=== PATIENT | male | born 1985 | race Caucasian/White ===

== ENCOUNTER 2025-11-17 15:47 | Emergency (ER) | payer OTHER, SELFPAY ==
--- OUTSIDE RECORDS SUMMARY | 2024-11-28 09:45 | XMS_ITS ---
Author Organization [facility] [employer] es Address [address] [place] [address] Care Team Providers Care Staff Certified Nurse Midwife Name Role Phone Herman De La Rosa Primary Care Provider REASON FOR VISIT EXT Encounters Encounter Location Date Provider Diagnosis [facility] [address] [place] [address] 11/28/2024 Herman De La Rosa Plan Of Treatment No Information Progress Notes * DANNA STINSON SRDOB:[birth year] (40 yo M)Acc No.[id number]:11/28/2024 Patient:?DANNA STINSON SR :?Herman De La Rosa DDSDOB:1985???Age:39 Y ???Sex:MaleDate:11/28/2024Phone:[phone]:[address], [place], [place] Subjective: * Chief Complaints: * E XT * Electronic signature of Herman De La Rosa DDS on 11/17/2025 at 04:47 PM ESTSign off status: Pending * Provider: Diego De La Rosa DDS Date: 0 11/28/2024 Generated for Printing/Faxing/eTransmitting on:?11/17/2025 04:47 PM EST
--- OUTSIDE RECORDS SUMMARY | 2024-11-29 03:30 | XMS_ITS ---
Author Organization [facility] [employer] es Address [address] [place] [address] Care Team Providers Care Release Manager Name Role Phone Herman De La Rosa Primary Care Provider [phone] REASON FOR VISIT EXT Encounters Encounter Location Date Provider Diagnosis [facility] [address] [place] [address] 11/29/2024 Herman De La Rosa Plan Of Treatment No Information Progress Notes * DANNA STINSON SRDOB:[birth year] (40 yo M)Acc No.[id number]:11/29/2024 Patient:?DANNA STINSON SR :?Herman De La Rosa DDSDOB:1985???Age:39 Y ???Sex:MaleDate:11/29/2024Phone:[phone]:[address], [place], [place] Subjective: * Chief Complaints: * E XT * Electronic signature of Herman De La Rosa DDS on 11/17/2025 at 04:47 PM ESTSign off status: Pending * Provider: Diego De La Rosa DDS Date: 0 11/29/2024 Generated for Printing/Faxing/eTransmitting on:?11/17/2025 04:47 PM EST
--- OUTSIDE RECORDS SUMMARY | 2024-11-30 04:15 | XMS_ITS ---
Author Organization [facility] [employer] es Address [address] [place] [address] Care Team Providers Care Gun Stocker Name Role Phone Herman De La Rosa Primary Care Provider [phone] REASON FOR VISIT EXT Encounters Encounter Location Date Provider Diagnosis [facility] [address] [place] [address] 11/30/2024 Herman De La Rosa Plan Of Treatment No Information Progress Notes * DANNA STINSON SRDOB:[birth year] (40 yo M)Acc No.[id number]:11/30/2024 Patient:?DANNA STINSON SR :?Herman De La Rosa DDSDOB:1985???Age:39 Y ???Sex:MaleDate:11/30/2024Phone:[phone]:[address], [place] Subjective: * Chief Complaints: * E XT * Electronic signature of Herman De La Rosa DDS on 11/17/2025 at 04:47 PM ESTSign off status: Pending * Provider: Diego De La Rosa DDS Date: 0 11/30/2024 Generated for Printing/Faxing/eTransmitting on:?11/17/2025 04:47 PM EST
[2025-11-17 16:24] VITALS: BP 160/90; PULSE 58; TEMP 36.8; O2SAT 99; BMI 32.1
--- NOTE | 2025-11-17 16:43 | ED.GENADUL1 ---
HPI HPI - General Adult General Chief complaint: Dental/Oral Stated complaint: SWELLING LEFT SIDE OF FACE TOOTH ACHE Time Seen by Provider: 11/17/25 15:58 Source: patient Mode of arrival: walk-in Limitations: no limitations History of Present Illness HPI narrative: Patient is a 40-year-old male that presents to the emergency department with complaints of tooth pain that started a few days ago when he states he broke his left front tooth eating food. He denies any other trauma such as fall or assault. He does have a dentist appointment Wednesday and was managing his pain with Tylenol and ibuprofen but the pain worsened this morning and he started to get some gum and cheek swelling. He states he felt feverish Related Data Previous Rx's ?Medication ?Instructions ?Recorded amoxicillin 500 mg capsule 500 mg PO TID 7 days #21 caps 11/17/25 Allergies Allergy/AdvReac Type Severity Reaction Status Date / Time acetaminophen (From Vicodin) Allergy Intermediate Hives Verified 11/17/25 16:23 hydrocodone (From Vicodin) Allergy Intermediate Hives Verified 11/17/25 16:23 Opioid HPI Opioid Management Most Recent Opioid Data: Last Pain Scale 10 Today, 16:24 Review of Systems ROS Status of ROS 10 or more systems reviewed and unremarkable except as noted in history and below PFSH PFSH Social History Little interest or pleasure in doing things: not at all Feeling down, depressed, or hopeless: not at all Exam Narrative Exam Narrative: General: No distress, age-appropriate Skin: Warm, dry, no pallor. No rash. Head: Normocephalic, atraumatic. Neck: Supple, non-tender. Eye: Pupils are equal, round and EOMI. No scleral icterus. Ears, Nose, Mouth, and Throat: No nasal mucosal hypertrophy. Oral mucosa is moist, no posterior oropharynx erythema, uvula is mid-line. Multiple dental caries and missing teeth. Broken tooth and dental caries noted to tooth #9 with gingival swelling, no abscess noted. No trismus. Minimal cheek swelling, no erythema, tenderness with palpation. Cardiovascular: Regular Rate and Rhythm without murmur, gallop or rub. Respiratory: No accessory muscle use or respiratory distress. Musculoskeletal: Full ROM of all extremities, no calf or popliteal tenderness Neurological: A&O x4. No cranial nerve dysfunction observed. No truncal ataxia. Moves all extremities. Sensation intact. Psychiatric: Cooperative and interactive. Normal mood and affect. Constitutional Vital Signs, click to edit/add: Last Vital Signs Temp 98.2 F 11/17/25 16:24 Pulse 58 L 11/17/25 16:24 Resp 18 11/17/25 16:24 BP 160/90 H 11/17/25 16:24 Pulse Ox 99 11/17/25 16:24 O2 Del Method Room Air 11/17/25 16:24 Documenting provider has reviewed patient's vital signs: yes Course Vital Signs Vital signs: Vital Signs Temperature 98.2 F 11/17/25 16:24 Pulse Rate 58 L 11/17/25 16:24 Respiratory Rate 18 11/17/25 16:24 Blood Pressure 160/90 H 11/17/25 16:24 Pulse Oximetry 99 11/17/25 16:24 Oxygen Delivery Method Room Air 11/17/25 16:24 Temperature 98.2 F 11/17/25 16:24 Pulse Rate 58 L 11/17/25 16:24 Respiratory Rate 18 11/17/25 16:24 Blood Pressure 160/90 H 11/17/25 16:24 Pulse Oximetry 99 11/17/25 16:24 Oxygen Delivery Method Room Air 11/17/25 16:24 Medical Decision Making MDM Narrative Medical decision making narrative: The patient is a 40-year-old male presenting with complaints of acute tooth pain, swelling of the gums and cheek, and a fever following recent trauma to his left front tooth. On examination, there is evidence of localized swelling and tenderness over the affected area, consistent with a dental abscess. No trismus. Uvula midline, no tonsillar or peritonsillar swelling. Airway patent. Patient vitals hemodynamically stable, afebrile. Given the worsening symptoms, including the development of swelling and fever, a diagnosis of dental abscess was made. The patient was prescribed Amoxicillin 500 mg three times daily for 7 days to target the likely bacterial pathogens. Pain management was addressed with Percocet 5 mg administered and dental anesthesia. The patient was advised to follow up with his dentist on Wednesday for definitive dental management. He was instructed to continue ikya-uqw-xsgorga Tylenol and Ibuprofen for pain control and to complete the prescribed antibiotic course. The patient was also educated on the signs of worsening infection, such as increased swelling, difficulty breathing, or spread of the infection to other areas, and instructed to return to the ED if any of these symptoms develop. Differential Diagnosis Differential Diagnosis: Dental abscess, cellulitis, dental caries, dental fracture with infection Discharge Plan Discharge Chief Complaint: Dental/Oral Clinical Impression: Dental caries, Dental abscess Patient Disposition: Home, Self-Care Time of Disposition Decision: 17:24 Condition: Good Mode of Transportation: Private Vehicle Prescriptions / Home Meds: New amoxicillin 500 mg capsule 500 mg PO TID 7 Days Qty: 21 0RF Print Language: Tamazight Instructions: Dental Abscess (ED) Referrals: JASSON CHAVIRA [Primary Care Provider, Family Practice] - 1 week Discharge Date/Time: 11/17/25 17:31
--- OUTSIDE RECORDS SUMMARY | 2025-11-17 16:47 | XMS_ITS | Clinical Summary ---
Author Organization [facility] Address [address] [place] [address] Care Team Providers Care Waste Minimization Technician Name Role Phone Unavailable Primary Care Provider Unavailabl e Allergies No known active allergies Medications MedicationSigDispense QuantityRefillsLast FilledStart DateEnd DateStatus methocarbamol (ROBAXIN) 750 mg tablet Take 750 mg by mouth three times daily.Active naproxen (NAPROSYN) 500 mg tablet Take 500 mg by mouth twice daily with meals.Active venlafaxine (EFFEXOR) 75 mg tablet Take 75 mg by mouth daily at bedtime.Active Active Problems ProblemNoted DateDiagnosed DateNeck pain11/03/2016Upper back pain11/03/2016 DepressionBack painSmoker Family History Medical HistoryRelationCommentsHypertensionFatherStrokeFatherCancerMother DiabetesOtherHypertensionPaternal GrandfatherRelationStatusCommentsFatherMother OtherAlivePaternal Grandfather Social History Tobacco UseTypesPacks/DayYears UsedDateSmoking Tobacco: Every WwrKrzsiivomn607 Alcohol UseStandard Drinks/WeekCommentsYes0 (1 standard drink = 0.6 oz pure alcohol)socialSex and Gender InformationValueDate RecordedSex Assigned at Not on fileLegal GnhZsoi31/30/2016 11:20 AM ESTGender IdentityNot on fileSexual OrientationNot on fileOccupationIndustryJob Start DateJob End DatemaintenanceNot on fileNot on fileNot on file Last Filed Vital Signs Vital SignReadingTime TakenCommentsBlood Xsueksoy548/7211/03/2016 9:09 AM EST Mfusu354811/03/2016 9:09 AM ESTTemperature--Respiratory Bela2474 9:09 AM ESTOxygen Saturation--Inhaled Oxygen Concentration--Rubnqe224.2 kg (265 lb) 11/03/2016 9:09 AM YLSIkenbe319.4 cm (6' 1 )11/03/2016 9:09 AM ESTself report ht/wtBody Mass Index34.9611/03/2016 9:09 AM EST Plan of Treatment Health MaintenanceDue DateLast DoneCommentsAnxiety Cnnhjsgcp85/27/2004Depression Hrdokpcah36/27/2004HIV Whgjevbdm09/27/2004Hepatitis C Ugkignfvy81/27/2004 DTaP,Tdap,Td Vaccine (1 - Tdap)2005Hepatitis B Vaccine (1 of 3 - 19+ 3- dose series)2005HPV Vaccine (1 - 3-dose SCDM series)2013Lipid Ktqbwfkmp23/27/2021ovid-19 Vaccine (1 - 2024- season)2025Influenza Vaccine (#1)[address] [place] [place] [address]
--- OUTSIDE RECORDS SUMMARY | 2025-11-17 16:47 | XMS_ITS | Patient Health Record ---
Author Organization [employer] [facility] [employer] es Address [address] [place] [address] Care Team Providers Care Carburizer Name Role Phone Herman De La Rosa Primary Care Provider [phone] Sheila Viveros Unavailable [phone] Reason For Referral No Information Plan Of Treatment No Information Insurance Providers Payer Name Payer Address Payer Phone Subscriber Number Group Number Insured Name Patient Relationship to Insured Coverage Start Date Coverage End Date [facility] [place] [employer] [address] [address] [place] [address] [id number] Lala STINSON - patient is the [id number] 2024ental Wrap [facility] [address] [place] [id number], DANIELSelf - patient is the [id number] 2024
--- OUTSIDE RECORDS SUMMARY | 2025-11-17 16:48 | XMS_ITS | Clinical Summary ---
Author Organization [facility] Address [address] [place] [address] Care Team Providers Care Tinter Photograph Name Role Phone No, Physician Primary Care Provider Unavailabl e Social History Tobacco UseTypesPacks/DayYears UsedDateSmoking Tobacco: Never AssessedSex and Gender InformationValueDate RecordedSex Assigned at BirthNot on fileLegal Sex Male08/29/2017 9:49 PM EDTGender GjrqttsuYldb17/14/2018 10:39 AM ESTSexual UqjcxxbhrjlEsfumans70/14/2018 10:39 AM EST Plan of Treatment Health MaintenanceDue DateLast DoneCommentsWellness Visit1989Depression Screening/Follow-Up (PHQ-2/9)1998Varicella Vaccines (1 of 2 - 13+ 2-dose series)1999HIV Bohwsgcra47/27/2001Hepatitis C Qkifuphzo37/27/2004HPV Vaccines (1 - 3-dose SCDM series)2013COVID-19 Vaccine ( - 2024- season) 2025Influenza Vaccine (#1)509/05/2018, 07/16/2017, 12/20/2016 Tetanus/Diphtheria/Pertussis (7 - Tdap)/, 11/15/1995, 09/24/1989, Additional history existsZoster Vaccines (1 of 2)2036RSV Vaccines (1 - 1-dose 75+ series)2061HIB GgffdvpsSubxzkksv58/03/1989IPV YhzdwvagKidzbjzqt41/20/1992, 09/24/1989, 02/06/1987, Additional history exists Hepatitis B ZvdqsxjmHtjnijksi35/24/2000, 01/13/2000, 05/06/1999Hepatitis A VaccinesAged OutNo longer eligible based on patient's age to complete this topic Meningococcal ACWY VaccineAged OutNo longer eligible based on patient's age to complete this topicMeningococcal B VaccineAged OutNo longer eligible based on patient's age to complete this topicPneumococcal VaccineAged OutNo longer eligible based on patient's age to complete this topicRotavirus VaccinesAged Out No longer eligible based on patient's age to complete this topic Insurance * Guarantor: Bryan Cueto TypeRelation to PatientDate of BirthPhone Billing AddressPersonal/RadhgpChsy1985 [address] [address] * Guarantor: Bryan Cueto TypeRelation to PatientDate of BirthPhone Billing PiujiwfZwebqbLlnn1985 [address] [place] [address] Care Teams Team MemberRelationshipSpecialtyStart DateEnd Date No, Physician [facility] PCP - Apnxnyu08/14/18
--- OUTSIDE RECORDS SUMMARY | 2025-11-17 16:48 | XMS_ITS | Clinical Summary ---
Author Organization [facility] Address [address] [place] [address] Care Team Providers Care Clamp Carrier Operator Name Role Phone Unavailable Primary Care Provider Unavailabl e Social History Tobacco UseTypesPacks/DayYears UsedDateSmoking Tobacco: Never AssessedSex and Gender InformationValueDate RecordedSex Assigned at BirthNot on fileLegal Sex Male02/03/2023 7:35 PM EDTGender IdentityNot on fileSexual OrientationNot on file Last Filed Vital Signs Vital SignReadingTime TakenCommentsBlood Pressure--Pulse--Temperature-- Respiratory Rate--Oxygen Saturation--Inhaled Oxygen Concentration--Lpwcth446 kg (275 lb)03/21/2019 12:00 PM CHIOdrvun508 cm (6' 2 )03/21/2019 12:00 PM EDTBody Mass Index35.31003/21/2019 12:00 PM EDT Plan of Treatment Not on file
[2025-11-17] MEDS: OXYCODONE HCL/ACETAMINOPHEN 5MG/325MG 1 TAB PO (17:28)
== END 2025-11-17 17:31 | disposition home or self-care (01) ==
PROVIDERS: Emergency Provider Student in an Organized Health Care Education/Training Program; PCP Internal Medicine
DX: K04.7 Periapical abscess without sinus (principal); K02.9 Dental caries, unspecified
CPT/HCPCS: 99283